=== PATIENT | male | born 1995 | race Caucasian/White ===

== ENCOUNTER 2017-12-13 18:52 | Emergency (ER) | payer SELFPAY ==
[~2017-12-13] VITALS: Ht 193 cm; Wt 117.0 kg
[2017-12-13 20:07] VITALS: Ht 193 cm; Wt 117.0 kg
[2017-12-13 21:26] VITALS: BP 133/66
== END 2017-12-13 21:26 | disposition home or self-care (01) ==
LOC: ED 18:52
DX: H66.92 Otitis media, unspecified, left ear (principal); H92.02 Otalgia, left ear; J06.9 Acute upper respiratory infection, unspecified; J45.909 Unspecified asthma, uncomplicated; Z88.0 Allergy status to penicillin

== ENCOUNTER 2018-05-29 19:23 | Emergency (ER) | payer SELFPAY ==
[~2018-05-29] VITALS: Ht 193 cm; Wt 124.7 kg
[2018-05-29 19:43] VITALS: Ht 193 cm; Wt 124.7 kg
[2018-05-29 22:02] VITALS: BP 122/89
== END 2018-05-29 22:02 | disposition home or self-care (01) ==
LOC: ED 19:23
DX: L02.31 Cutaneous abscess of buttock (principal); Z88.0 Allergy status to penicillin; J45.909 Unspecified asthma, uncomplicated; F17.210 Nicotine dependence, cigarettes, uncomplicated
CPT/HCPCS: J2001